=== PATIENT | male | born 1940 | race Caucasian/White ===

== ENCOUNTER 2017-06-10 08:44 | Observation (INO) | payer OTHER ==
--- NOTE | 2017-06-10 09:04 | CPEKG ---
Heart Rate: 91 RR Interval: 659 P-R Interval: 193 QRSD Interval: 94 QT Interval: 336 QTC Interval: 414 P [place]: 62 QRS [place]: 82 EKG Severity - ABNORMAL ECG - EKG Impression: SINUS RHYTHM EKG Impression: VENTRICULAR BIGEMINY EKG Impression: BORDERLINE RIGHT AXIS DEVIATION EKG Impression: ABNRM R PROG, CONSIDER ASMI OR LEAD PLACEMENT EKG Impression: SHORT QT INTERVAL Electronically Signed By: Vianca Tovar 10-Jun-2017 15:27:28
--- NOTE | 2017-06-10 09:07 | EDPHY ---
H & P Stated Complaint: L hand was numb when he woke up this morning;no pain HPI/ROS: CHIEF COMPLAINT: Left hand paresthesias and weakness HISTORY OF PRESENT ILLNESS: The patient is an anticoagulated (plavix) 77 y/o male complaining of left hand numbness and weakness onset this morning. He had significant difficulty and clumsiness tying his shoes due to symptoms. As he was tying his shoes around 07:30, he noticed his heart LINQ monitor come on, which is unusual. His encouraged him to call his linking machine operator due to this and they referred him to the ED. His hand weakness is improving. He did not notice any other weakness or paresthesias and was able to walk normally. Denies acute neck pain, chest pain, headache, recent illness, dyspnea. He also notes temporary vision changes like a "bright light or oil on my glasses" in both eyes yesterday morning that last about 10 minutes. He has noticed some waning strength over the last 6 months. REVIEW OF SYSTEMS: A ten point review of systems was performed and is negative with the exception of the items mentioned in the HPI. Past medical history: Chronic neck and lower back pain, COPD and sleep apnea- O2 in PM, abdominal aneurysm, hypertension, chronic renal insufficiency with baseline creatinine in mid 2's, BPH, CAD, dyslipidemia, hearing loss - hearing aids. Past surgical history: Cardiac stents, AAA repair, appendectomy, tonsillectomy, pilonidal cyst, LINQ monitor Family history: Noncontributory Social history: Exercises daily. Former smoker. 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 Orthopedic Assistant: Dr. Chandler Ward. PCP: Dr. Mcghee. Fish Grader: Dr. Syde. Prior medical records reviewed including admission 03/19/16 for syncope and cardiology procedure note 06/06/16. General Appearance: Alert. Vital signs reviewed. Blood pressure 188/60 Eyes: Pupils equal and round, no conjunctival injection, no discharge. Anicteric. ENT, Mouth: Mucous membranes are moist, no oropharyngeal erythema or edema. Neck: No lymphadenopathy, supple. Respiratory: Distant breath sounds with scattered expiratory wheezes Cardiovascular: Bigeminy; no murmur, rub, or gallop. Distant heart sounds. Gastrointestinal: Abdomen is soft and nontender, no masses or organomegaly, bowel sounds normal. Skin: Warm and dry, no rashes on exposed skin, normal color. Back: Nontender to palpation over the thoracolumbar spine. No CVAT. Extremities: No lower extremity edema, no calf tenderness or swelling. Neurological: Alert and oriented. Moving all four extremities easily and equally. Decreased hearing to finger rub bilaterally, but worse on right. Cranial nerves II through XII are examined and are otherwise intact (visual acuity not tested) . Strength is 5 over 5 bilaterally with testing of all major motor groups. Sensation is intact to light touch over all 4 extremities. Deep tendon reflexes are 2+ in the biceps and knees bilaterally. Mild dysmetria on left during jxbz-vy-najv. Xztvbj-aw-kljy shows mild past pointing with the right, but better on second try. Accurate vodoki-yk-niex on the left. Psychiatric: Normal affect. - Personal History Current Tetanus Diphtheria and Acellular Pertussis (TDAP): Yes - Medical/Surgical History Hx Asthma: No Hx Chronic Respiratory Disease: No Hx Diabetes: No Hx Cardiac Disease: Yes Hx Renal Disease: Yes Hx Cirrhosis: No Hx Alcoholism: No Hx HIV/AIDS: No Hx Splenectomy or Spleen Trauma: No Other PMH: CARDIAC STENTS/HTN BPH/KIDNEY PROBLEMS. aaa, asthma, copd, ddd, zeb, cri - Social History Smoking Status: Former smoker Constitutional: Initial Vital Signs Temperature (C) 36.6 C 06/10/17 08:45 Heart Rate 41 L 06/10/17 08:45 Respiratory Rate 16 06/10/17 08:45 Blood Pressure 188/60 H 06/10/17 08:45 O2 Sat (%) 98 06/10/17 08:45 O2 Delivery Mode Room Air Allergies/Adverse Reactions: hydromorphone HCl [From Dilaudid] Allergy (Intermediate, Verified 06/10/17 08:46 ) MENTAL CHANGES opioid agonists Allergy (Uncoded 06/06/16 11:44) Home Medications: Medication Instructions Recorded Allopurinol [Allopurinol 100 MG 100 mg PO BID 03/19/16 (*)] Clopidogrel Bisulfate [Clopidogrel] 75 mg PO DAILY 03/19/16 Omeprazole [Prilosec 20 mg] 20 mg PO DAILY 03/19/16 Pravastatin Sodium [Pravachol] 80 mg PO DAILY@18 03/19/16 Tamsulosin HCl [Flomax 0.4 MG (*)] 0.4 mg PO HS 03/19/16 Ascorbic Acid [Vitamin C 500 mg 1,000 mg PO DAILY@1900 06/10/17 (*)] Cholecalciferol Vit D3 [Vitamin D3 1,000 units PO TUFR@1900 06/10/17 (*)] Herbals/Supplements -Info Only 1 ea PO DAILY 06/10/17 Multivitamins [Multivitamin (*)] 1 each PO DAILY 06/10/17 Shipman-3 Fatty Acids [Fish Oil 1000 1,000 mg PO BID 06/10/17 mg (*)] Tears/Dextran 70/Hypromellose 1 drop EACHEYE Q2 PRN 06/10/17 [Natural Balance Tears (*)] Triamcinolone 0.025% 1 tran TP DAILY PRN 06/10/17 [Triamcinolone 0.025% Ointment (*)] Ubidecarenone [Co Q-10] 300 mg PO DAILY 06/10/17 Aspirin [Aspirin 325 mg (*)] 325 mg PO DAILY #30 tab 06/11/17 amLODIPine BESYLATE [Norvasc 2.5 2.5 mg PO DAILY #30 tab 06/11/17 mg (*)] Medical Decision Making - Diagnostics Imaging: Discussed imaging studies w/ transportation dispatcher Radiologist, I viewed and interpreted images myself ED Course/Re-evaluation: This is an anticoagulated 77 y/o male who presents with at least 4 hours of left hand paresthesias and weakness. It appears that he woke with this symptoms , making the timing of the onset unknown. He is taking Plavix. These symptoms are slowly improving. On exam, he has some mild neurologic abnormalities. He has decreased hearing to finger rub bilaterally and worse on right, mild dysmetria on left during xqgw-tt-cike, and his ahjfme-bk-aicy shows mild past pointing with the right, but better on second try and normal on the left which is the hand that was symptomatic. He does not have sensory deficits on exam. No extinction. NIHSS 0. His symptoms are most concerning for stroke. He would not qualify for tPA as the onset of symptoms is unknown, symptoms are rapidly improving, and his stroke score is 0. Plan for IV, labs, EKG, and head CT. The 12 lead EKG was interpreted by myself. Sinus with bigeminy. Similar to prior EKGs. See hard copy and/or "tracemaster" electronic copy for interpretation. Head CT shows lacunar infarct in right caudate that is new since 2016, but not acute. Extensive carotid arthrosclerosis. Reassessed patient and discussed findings. Recommended admission for TIA/stroke, which he reluctantly agrees to. 1024: Consulted with Dr. Cisneros, cardiology. He will consult during admission as needed. Reassessed patient and discussed results and recommendation for admission for TIA/stroke work up including brain MRI, CTA of the head and neck,, and echocardiogram. He is unsure if he would like to be admitted and wants to call his first. 1114: Reassessed patient and again discussed my recommendation for admission. He is still reluctant. His hand symptoms have resolved. He also reports his vision changes recurred about 15 minutes ago and are still present. He describes it as bright light in both eyes that feels "like I put oil in there and I'm looking through a prism." It is the same in each eye. He denies blurriness or vision cuts and is able to read normally. No headache. On reexamination SAIDA, EOMI, visual mobley full to bedside confrontational testing. 1119: Vision change resolved instantly. After lengthy discussion, the patient has agreed to admission. 1130: Consulted with Dr. Nieves, neurology. He will follow patient's admission and does recommend CTA head and neck during admission. 1134: Spoke with hospitalist service. Dr. Sheridan accepts admission. Patient currently asymptomatic--denying any hand or visual symptoms. He is noted to be hypertensive in the emergency department. He has a history of hypertension and states that he is compliant with his medications. He has a loop recorder in place and tells me that the information on it should have been sent to his cardiology office. In discussion with the office I learned that this information is not sent directly to them. They will need to access the information on his recorder to determine whether not he had a cardiac arrhythmia with subsequent embolic event. It is concerning that he had these symptoms in the face of anticoagulation. Differential Diagnosis: I considered a differential diagnosis that includes but is not limited to CVA, TIA, malignancy or intracranial mass, seizure, complication of headache, cervical radiculopathy, carpal tunnel syndrome, trauma to the left hand or arm. - Data Points Laboratory Results: Laboratory Results 06/10/17 09:04 06/10/17 09:04 Medications Given: Discontinued Medications Allopurinol (Allopurinol) 100 mg PO BID EUSEBIO Stop: 12/08/17 08:59 Last Admin: 06/11/17 09:03 Dose: 100 mg Amlodipine Besylate (Norvasc) 2.5 mg PO DAILY EUSEBIO Stop: 12/08/17 08:59 Last Admin: 06/11/17 09:13 Dose: 2.5 mg Clopidogrel Bisulfate (Plavix) 75 mg PO DAILY EUSEBIO Stop: 12/08/17 08:59 Last Admin: 06/11/17 09:03 Dose: 75 mg Ethyl Alcohol (Vodka) 50 ml PO DAILY AT 6PM EUSEBIO Stop: 12/07/17 17:59 Last Admin: 06/10/17 18:59 Dose: 50 ml Miscellaneous Medication (Ubidecarenone [Co Q-10]) 0 mg PO DAILY EUSEBIO Stop: 12/08/17 08:59 Last Admin: 06/11/17 09:11 Dose: Not Given Multivitamins (Tab-A-Je) 1 each PO DAILY EUSEBIO Stop: 12/08/17 08:59 Last Admin: 06/11/17 09:03 Dose: 1 each Xtdyi-0-Illj Ethyl Esters (Fish Oil) 1,000 mg PO BID EUSEBIO Stop: 12/07/17 20:59 Last Admin: 06/11/17 09:02 Dose: 1,000 mg Pantoprazole Sodium (Protonix) 40 mg PO DAILY EUSEBIO Stop: 12/08/17 08:59 Last Admin: 06/11/17 09:03 Dose: 40 mg Pneumococcal 13-Valent Conj Vacc (Prevnar 13 Syringe) 0.5 ml IM .ONCE ONE Stop: 06/11/17 12:52 Last Admin: 06/11/17 13:12 Dose: 0.5 ml Pravastatin Sodium (Pravachol) 80 mg PO DAILY@18 EUSEBIO Stop: 12/07/17 17:59 Last Admin: 06/10/17 18:58 Dose: 80 mg Tamsulosin HCl (Flomax) 0.4 mg PO HS EUSEBIO Stop: 12/07/17 20:59 Last Admin: 06/10/17 21:34 Dose: 0.4 mg Departure - Departure Disposition: [facility] Acute Clinical Impression: Left hand weakness, Left hand paresthesia TIA (transient ischemic attack) Qualifiers: Transient cerebral ischemia type: other Qualified Code(s): G45.8 - Other transient cerebral ischemic attacks and related syndromes Condition: Fair Report Scribed for: Vianca Tovar Report Scribed by: Sussy Perez Date of Report: 06/10/17 Time of Report: 09:43 Physician Review and Approval Statement: 06/10/17 09:07 Portions of this note were transcribed by the medical office scheduler. I, Dr. Vianca Tovar, personally performed the history, physical exam, and medical decision- making; and confirmed the accuracy of the information in the transcribed note.
[2017-06-10 09:42] LABS: % IMMATURE GRANULYOCYTES 0.6 % (0.0-1.1); ABSOLUTE IMMATURE GRANULOCYTES 0.04 10^3/uL (0.00-0.10); ADD DIFF? NO; ADD MORPH? NO; ADD SCAN? NO; ATYPICAL LYMPHOCYTE FLAG 0 (0-99); FRAGMENT RBC FLAG 0 (0-99); HEMATOCRIT 36.4 % (40.0-51.0); HEMOGLOBIN 12.6 g/dL (13.7-17.5); LEFT SHIFT FLG 0 (0-99); LIPEMIA HEMOLYSIS FLAG 90 (0-99); MEAN CELL HEMOGLOBIN 35.9 pg (27.9-34.1); MEAN CELL HEMOGLOBIN CONCENTR. 34.6 g/dL (32.4-36.7); MEAN CELL VOLUME 103.7 fL (81.5-99.8); MEAN PLATELET VOLUME 9.7 fL (8.7-11.7); PLATELET CLUMPS FLAG 40 (0-99); PLATELET COUNT 161 10^3/uL (150-400); RED BLOOD CELL COUNT 3.51 10^6/uL (4.40-6.38)
[2017-06-10 09:47] LABS: ANION GAP 11 mEq/L (8-16); CALCIUM 10.7 mg/dL (8.5-10.4); CARBON DIOXIDE 27 mEq/l (22-31); CHLORIDE 105 mEq/L (97-110); CREATININE 2.1 mg/dL (0.7-1.3); GLOMERULAR FILTRATION RATE 31; GLUCOSE 114 mg/dL (70-100); POTASSIUM 4.9 mEq/L (3.5-5.2); SODIUM 143 mEq/L (134-144)
[2017-06-10 09:51] LABS: INR 0.95 (0.83-1.16); PROTIME(PATIENT) 12.6 SEC (12.0-15.0)
[2017-06-10 09:52] LABS: APTT 25.8 SEC (23.0-38.0)
[2017-06-10 09:59] LABS: TROPONIN I 0.031 ng/mL (0.000-0.034)
[2017-06-10] MEDS ORDERED: ONDANSETRON DISINTEGRATING 4 MG TAB PO PRN (12:05)
[2017-06-10] MEDS ORDERED: ACETAMINOPHEN 325 MG TAB PO PRN (12:05)
[2017-06-10] MEDS ORDERED: ONDANSETRON 4 MG/2 ML VIAL IVP PRN (12:05)
[2017-06-10] MEDS ORDERED: TRIAMCINOLONE 0.025% 15 GM OINTTUBE TP PRN (12:57)
[2017-06-10] MEDS ORDERED: TEARS/DEXTRAN 70/HYPROMELLOSE 15 ML OPHT.BTL EACHEYE PRN (12:57)
--- NOTE | 2017-06-10 14:20 | GHP ---
[f rep st] HISTORY AND PHYSICAL DATE OF ADMISSION: 06/10/2017 CHIEF COMPLAINT: Left hand numbness. HISTORY OF PRESENT ILLNESS: A 77-year-old male, history of CAD with LAD stent in 2004, COPD, hypertension, presenting with left hand numbness. He was in his normal state of health yesterday. He complained of left hand numbness and weakness this morning, about 5 a.m. He said it was difficult, and his hands were clumsy, tying his shoes. At 7:30 a.m., he noticed his heart monitor come on, which is unusual as it only comes on at night. He did not have any slurred speech. Denies chest pain or shortness of breath. Yesterday, he noticed vision changes, like he was looking through oil; like looking through something thick, lasting about 10-15 minutes. REVIEW OF SYSTEMS: I completed a 10-point review of systems, negative except as noted in HPI. PAST MEDICAL HISTORY: 1. Chronic neck and back pain. 2. COPD, sleep apnea. On nocturnal oxygen. 3. History of abdominal aneurysm. 4. Hypertension. 5. Chronic kidney disease. Baseline creatinine is 2. 6. Benign prostatic hypertrophy. 7. Coronary artery disease. 8. Dyslipidemia. 9. Hearing loss. PAST SURGICAL HISTORY: AAA repair, appendectomy, tonsillectomy, pilonidal cyst , LINQ monitor. FAMILY HISTORY: Noncontributory. SOCIAL HISTORY: Lives with his in [place], been 37 years. Drinks 4 vodkas a night. No tobacco or illicits. ALLERGIES: 1. Hydromorphone. 2. Opioid agonists. HOME MEDICATIONS: Vitamin D 3000, herbal supplement, fish oil 1000 mg, vitamin C, CoQ10, multivitamins, Natural Tears, triamcinolone cream, allopurinol 100 mg b.i.d., omeprazole 20 mg daily, Plavix 75 mg daily, Flomax 0.5 mg q.h.s., pravastatin 80 mg daily, aspirin 81 mg Saturday, Saturday, and Saturday. PHYSICAL EXAMINATION: VITAL SIGNS: Temperature 36.6. Blood pressure 174 to 189 over 80s to 90s. Heart rate 40 to 76. Respirations 16, 95% on room air. GENERAL: Well-appearing male, walking around in his room. HEENT: PERRLA. EOMI. Oropharynx clear. CV: Bradycardic, but regular. No murmurs, gallops, rubs. LUNGS: Clear to auscultation bilaterally. ABDOMEN: Soft, nontender, nondistended. Positive bowel sounds. : No Hannah. No suprapubic tenderness. MUSCULOSKELETAL: 5/5 upper/lower extremity strength. NEURO: 2 through 12 intact. Difficulty standing, with negative pronators. Normal sensation to touch. PSYCH: Alert and oriented x3. LABORATORY DATA: WBC is 6, hemoglobin 12, hematocrit 36, platelets 161. Coags within normal. Sodium 141, potassium 4.9, chloride 105, carbon dioxide 27, BUN 14, creatinine 2.1, glucose 114, calcium 10.7, phosphorus is 2.8. Troponin 0.031. Head CT: Mild atrophy. Old lacunar infarct to the right caudate head and caudate body, new since 2016. No acute hemorrhage, hydrocephalus, or mass effect. Extensive cerebral vascular atherosclerosis. EKG is personally reviewed by me: Roderick, which is seen on prior. ASSESSMENT AND PLAN: 1. Transient ischemic attack: Concerning symptoms. Unclear onset. Patient is not a tissue plasminogen activator candidate. Currently, the symptoms are resolved. Will monitor on telemetry overnight with physical therapy, occupational therapy, and speech evaluation. He does have a LINQ recorder and, per my review of outpatient notes, episodes atrial fibrillations, but actually sinus rhythm with premature ventricular contractions. He has evidence of atherosclerosis on prior carotid ultrasound in February 2016. CT head showed infarct of the caudate head and body, new since 2015, but nothing acute. Neurology will consult. Patient is currently on Plavix and takes aspirin 81 mg Saturday, Saturday, Saturday. Would consider taking daily, given acute symptoms. Check a lipid panel. Allow permissive hypertension for the first 24 hours. Check MRA head/neck (with CKD) and MRI brain, echo 2. Accelerated hypertension: He states his blood pressure is usually 140s. Will monitor closely here. 3. Hyperlipidemia: Statin. 4. Chronic obstructive pulmonary disease: On oxygen at night. No evidence of exacerbation. 5. Coronary artery disease: Continue statin and aspirin. 6. Alcohol dependence, drinking 4-5 drinks a day: He is followed by Dr. Mcghee , who has actually referred him to [facility]. The patient was counseled on his alcohol cessation. 7. Chronic kidney disease: Creatinine is 2.1, which is baseline. He is followed by Dr. Sharp. 8. Benign prostatic hypertrophy: Flomax. 9. Gastroesophageal reflux disease: Proton pump inhibitor. 10. Deep vein thrombosis prophylaxis: Sequential compression devices. 11. Diet: Cardiac. DISPOSITION: Patient warrants observation and admission, given acute symptoms concerning for TIA, requiring telemetry monitoring. Neurology consult. /[id number]/MODL MTDD
--- NOTE | 2017-06-10 15:24 | CPEKG ---
Heart Rate: 65 RR Interval: 923 P-R Interval: 201 QRSD Interval: 92 QT Interval: 420 QTC Interval: 437 P [place]: 0 QRS [place]: 65 T Wave [place]: 62 EKG Severity - ABNORMAL ECG - EKG Impression: SINUS RHYTHM EKG Impression: MULTIPLE VENTRICULAR PREMATURE COMPLEXES Electronically Signed By: Ulises Diaz 10-Jun-2017 22:07:19
--- NOTE | 2017-06-10 16:21 | ECHO ---
[email or web address] [address] [address] Main: [phone] Fax: Transthoracic Echocardiogram Name: NANNETTE MARINO MR#: [id number] Study Date: 06/10/2017 Study Time: 01:49 PM Date of : 1940 Age: 77 year(s) Height: 172.7 cm (68 in.) Weight: 81.19 kg (179 lb.) BSA: 1.95 m2 Gender: Male Examination: Echo with Agitated Saline Indication: concern for TIA; bubble Image Quality: Adequate Contrast: I.V. dose of agitated saline Requested by: Emily Sheridan BP: 174 mmHg/60 mmHg Heart Rate: Rhythm: Bigeminy Indication: concern for TIA; bubble Procedure Staff Division Chair: Marlena Monsivais Reading Physician: French Rawls Requesting Provider: Conclusions: Normal global systolic LV function. EF is 56 %. No regional wall motion abnormality. The left atrium is mildly dilated. An agitated saline study was performed and was negative for intracardiac shunting. Trivial tricuspid valve regurgitation. Normal size aortic root measuring 3.0 cm. Compared to echo of 02/2016, today's echo is unchanged. Measurements: Chambers Valvular Assessment AV/MV Valvular Assessment TV/PV Normal Normal Normal Name Value Range Name Value Range Name Value Range Ao Cynthia (MM): 3.0 cm (2.2 cm-3.7 AV Vmax: 1.94 m/s (1 m/s-1.7 PV Vmax: 0.81 m/s (0.6 m/s-0.9 cm) m/s) m/s) IVSd (2D): 1.1 cm (0.6 cm-1.1 AV maxP mmHg ( - ) PV PGmax: 3 mmHg ( - ) cm) LVOT Vmax: 1.17 m/s (0.7 m/s-1.1 LVDd (2D): 5.0 cm (4.2 cm-5.9 m/s) cm) LATOSHA (Vmax): 2.1 cm2 ( - ) LVDs (2D): 3.6 cm (2.1 cm-4 MV E Vmax: 0.92 m/s ( - ) cm) MV A Vmax: 1.26 m/s ( - ) LVPWd (2D): 1.0 cm (0.6 cm-1 MV E/A: 0.73 ( - ) cm) LVOTd 2.1 cm 2.1 cm mm LVEF (BP): 56 % (>=55 %) RVDd(2D): 3.1 cm (1.9 cm-3.8 cmmm) Continued Measurements: Chambers Valvular Assessment AV/MV Valvular Assessment TV/PV Patient: NANNETTE MARINO Study Date: 06/10/2017 Page 1 of 2 01:49 PM Name Value Name Value Name Value LADs Lon.5 cm MV DecTime: 229 m/s CVP (est.): 5 mmHg LA Area: 23.7 cm2 MV E/E' Septal: 15.50 LA Volume: 70 ml MV E/E' Lateral: 8.20 LA Volume Index: 35.9 ml/m2 RA Area: 21.0 cm2 Additional Vessels Name Value Ao Ascendin.8 cm Findings: Left Ventricle: Normal size left ventricle. Mild to moderate LVH. Normal global systolic LV function. EF is 56 %. No regional wall motion abnormality. Unable to assess diastolic dysfunction. Right Ventricle: Normal size right ventricle. Normal RV function. Left Atrium: The left atrium is mildly dilated. An agitated saline study was performed and was negative for intracardiac shunting. Right Atrium: The right atrium is mildly dilated. Mitral Valve: The mitral valve is normal in appearance. Trivial mitral valve regurgitation. Aortic Valve: The aortic valve is tri-leaflet. Aortic sclerosis is present. There is no aortic valve regurgitation. No aortic valve stenosis is present. Tricuspid Valve: The tricuspid valve appears normal. Trivial tricuspid valve regurgitation. Pulmonary artery pressure is not obtained due to inadequate TR jet. Pulmonic Valve: The pulmonic valve is normal in appearance and function. There is no pulmonic regurgitation seen. Aorta: Normal size aortic root measuring 3.0 cm. Normal size ascending aorta measuring 2.8 cm. Pericardium: No pericardial effusion. (No Signature Object) Patient: NANNETTE MARINO Study Date: 06/10/2017 Page 2 of 2 01:49 PM [id number]
[2017-06-10] MEDS ORDERED: PRAVASTATIN SODIUM 40 MG TAB PO SCH (18:00)
[2017-06-10] MEDS ORDERED: NON-FORMULARY NEW DRUG (Pravastatin Sodium [Pravachol] 80 MG) PO SCH (18:00)
[2017-06-10] MEDS ORDERED: VODKA 50 ML BOTTLE PO SCH (18:00)
[2017-06-10] MEDS ORDERED: TAMSULOSIN HCL 0.4 MG CAP PO SCH (21:00)
[2017-06-10] MEDS: OMEGA-3 FATTY ACIDS 1,000 MG CAP PO SCH (21:34)
[2017-06-11 05:44] LABS: ANION GAP 10 mEq/L (8-16); CALCIUM 9.7 mg/dL (8.5-10.4); CARBON DIOXIDE 25 mEq/l (22-31); CHLORIDE 104 mEq/L (97-110); CHOLESTEROL 128 mg/dL (140-220); CHOLESTEROL/HDL RATIO 1.68 RATIO (1.00-4.97); GLOMERULAR FILTRATION RATE 33; GLUCOSE 95 mg/dL (70-100); HIGH DENSITY LIPOPROTEIN 76 mg/dL (40-65); LDL/HDL RATIO 0.49 RATIO (1.00-3.64); LOW DENSITY LIPOPROTEIN 37 mg/dL (80-100); NON-HIGH DENSITY LIPOPROTEIN 52 mg/dL (90-129); POTASSIUM 4.2 mEq/L (3.5-5.2); SODIUM 139 mEq/L (134-144); TRIGLYCERIDE 77 mg/dL (40-150); VERY LOW DENSITY LIPOPROTEINS 15 mg/dL (8-25)
[2017-06-11] MEDS ORDERED: MULTIVITAMINS 1 EACH TAB PO SCH (09:00)
[2017-06-11] MEDS ORDERED: ALLOPURINOL 100 MG TAB PO SCH (09:00)
[2017-06-11] MEDS ORDERED: CLOPIDOGREL BISULFATE 75 MG TAB PO SCH (09:00)
[2017-06-11] MEDS ORDERED: NON-FORMULARY NEW DRUG (Omeprazole [Prilosec 20 Mg] 20 MG) PO SCH (09:00)
[2017-06-11] MEDS ORDERED: UBIDECARENONE 300 MG PO SCH ×2 (09:00)
[2017-06-11] MEDS ORDERED: Herbals/Supplements -Info Only PO SCH (09:00)
[2017-06-11] MEDS ORDERED: PANTOPRAZOLE SODIUM 40 MG TAB PO SCH (09:00)
[2017-06-11] MEDS: OMEGA-3 FATTY ACIDS 1,000 MG CAP PO SCH (09:02)
--- NOTE | 2017-06-11 10:49 | NEUROPROG ---
Assessment: HOSPITAL NEUROLOGY CONSULT REQUESTING: Emily Sheridan MD REASON: stroke HPI: 77 year old right-handed man with a history of HTN, HLD, CAD, implanted loop recorder, alcohol abuse, SHARDA presented to our facility yesterday as a stroke alert. He notes waking around 0500 feeling his right hand was numb and clumsy. He noted difficulty with tasks such as trying to tie a shoelace. He phoned his gunstock spray unit adjuster who directed him to the ED. He presented at 0845. Symptoms had improved at that time, so no acute stroke intervention was deemed necessary. He had also noted a brief episode of binocular visual blurring in the whole visual mobley, like "someone put oil in my eyes." This visual disturbance only lasted 15 mins. He denies any speech/language change, gait trouble, leg symptoms, dizziness/vestibular symptoms, hearing changes. No CP, palpitations, SOB. He denies prior history of stroke/TIA. Today, he feels completely back to baseline. ROS: As per the HPI, otherwise a complete 12 point ROS was performed and is negative ALLERGIES AND MEDS: As recorded in the EMR - reviewed and reconciled PFSH: As per the intake H&P by Dr. Sheridan from yesterday EXAM: VS reviewed in EMR GEN: WDWN laying in NAD HEENT: NCAT, sclera anicteric, conjunctiva not injected, MMM, oropharynx clear, no scalp tenderness NECK: supple, nontender, no meningismus CV: RRR s1 s2 wo m/r/c/g. Carotid pulses 2+ wo bruit NEURO: NIHSS 0 MS: awake, alert, oriented to all spheres. Speech nondysarthric. No language disturbance. Follows commands. Attends to both sides. Recent/remote memory grossly intact. Mood euthymic. Good fund of knowledge. CN: pupils 4mm round and reactive. Fundi with sharp discs. VFF. Primary gaze centered. Full ocular motility. Facial sensation preserved. Face symmetric. Hearing grossly intact to finger rub. Palatoglossal movements intact. Shoulder shrug and head turn strong. MOTOR: normal bulk/tone. No adventitial movements. Full power throughout. SENSORY: intact to all modalities throughout. No extinction. COORD: no ataxia FN/HS. Santi preserved. REFLEX: plantars down. No clonus. Absent ankle jerks, other DTRS 2/4. GAIT: deferred to PT safety eval DATA REVIEW: Labs reviewed in EMR LDL 37 A1c pending TTE - mild LA dilation, no mass/shunt, preserved EF PERSONALLY INTERPRETED RESULTS AND DATA: MRI brain wo - a few punctate areas of acute infarction in the left precentral gyrus/motor strip. Chronic microvascular ischemic changes in the subcortical white matter. MRA head/neck - patent intracranial/extracranial vessels IMPRESSION AND RECOMMENDATIONS: // ACUTE ISCHEMIC STROKE Patient with cortically based acute ischemic stroke with rapidly resolving neurologic deficits. Carotid and intracranial circulation patent and no PFO on TTE. Given the cortical nature, this leaves a very likely mechanism of cardioembolism. He already has an implanted loop recorder. This will need to be interrogated. - consider empiric anticoagulation given stroke mechanism - cont ASA daily for now, but increase to 325mg daily - cont statin for goal LDL < 70 - goal normotension - goal A1c < 6.5 - alcohol cessation strongly encouraged - cont current SHARDA treatment - stroke education - PT/OT/INTERIOR SYSTEMS CARPENTER consults - followup with cardiology for loop recorder interrogation, further evaluation of likely afib with new embolic stroke - followup neurology 6-8 weeks - followup PCP within 1-2 weeks - will sign off. Recall PRN Objective: Vital Signs Temp Pulse Resp BP Pulse Ox 36.8 C 69 18 121/74 H 96 06/11/17 07:50 06/11/17 07:50 06/11/17 07:50 06/11/17 09:13 06/11/17 07:50 Laboratory Results 06/11/17 04:55 06/10/17 06/11/17 06/12/17 05:59 05:59 05:59 Intake Total 1040 Balance 1040 PT 12.6 SEC (12.0-15.0) 06/10/17 09:04 INR 0.95 (0.83-1.16) 06/10/17 09:04 Allergies/Adverse Reactions: hydromorphone HCl [From Dilaudid] Allergy (Intermediate, Verified 06/10/17 08:46 ) MENTAL CHANGES opioid agonists Allergy (Uncoded 06/06/16 11:44)
[2017-06-11 11:43] VITALS: O2SAT 95
--- NOTE | 2017-06-11 12:34 | HOSPPROG ---
Hospitalist Progress Note Assessment/Plan: #Acute ischemic stroke: no residual deficits -cleared by PT/OT/GRANTS DIRECTOR -LDL at goal <70 -still bit hypertensive. Add Norvasc -needs to FU with Cardiology. I spoke with Vicky with Cardiology who reviewed records and no a fib events. -ASA 325, Plavix. #Etoh dependence: counseled on cessation #CKD: Cr stable. #HTN: add Norvasc #DC today. See DC summary for full plan Subjective: no numbness or tingling Objective: Vital Signs Temp Pulse Resp BP Pulse Ox 36.9 C 69 20 146/90 H 95 06/11/17 11:43 06/11/17 11:43 06/11/17 11:43 06/11/17 11:43 06/11/17 11:43 Laboratory Results 06/11/17 04:55 06/10/17 06/11/17 06/12/17 05:59 05:59 05:59 Intake Total 1040 Balance 1040 PT 12.6 SEC (12.0-15.0) 06/10/17 09:04 INR 0.95 (0.83-1.16) 06/10/17 09:04 - Physical Exam Constitutional: no apparent distress Eyes: PERRL Ears, Nose, Mouth, Throat: moist mucous membranes Cardiovascular: regular rate and rhythym, no murmur, rub, or gallop Respiratory: no respiratory distress Gastrointestinal: normoactive bowel sounds, soft, non-tender abdomen Genitourinary: no bladder fullness Skin: warm Musculoskeletal: full muscle strength Neurologic: AAOx3, CN II-XII Intact, No facial droop Psychiatric: interacting appropriately ICD10 Worksheet Patient Problems: Problems Problem Status Onset Left hand paresthesia Acute Left hand weakness Acute TIA (transient ischemic attack) Acute Abnormal EKG Acute Syncope Acute
[2017-06-11] MEDS ORDERED: PNEUMOC 13-VAL CONJ-DIP CRM/PF 0.5 ML SYR IM ONE (12:51)
--- NOTE | 2017-06-11 15:12 | GDS ---
[f rep st] DISCHARGE SUMMARY DISCHARGE DIAGNOSIS: 1. Acute ischemic stroke. 2. Alcohol dependence. 3. Chronic kidney disease. 4. Hypertension. 5. Chronic neck and back pain. 6. Chronic obstructive pulmonary disease. 7. Sleep apnea. On nocturnal oxygen. 8. History of abdominal aneurysm. 9. BPH. 10. Coronary artery disease. 11. Dyslipidemia. HISTORY OF PRESENT ILLNESS: A 77-year-old male with history of CAD with LAD stent in 2004, COPD, and hypertension. Presenting with left hand numbness. He was in his normal state of health the day prior to admission. The morning of admission, he noticed left hand numbness and weakness. He had difficulty tying his shoe. At 7:30 a.m., he noticed his heart monitor come on, which is unusual. He denies any chest pain, palpitations, shortness of breath. No nausea, vomiting, or diarrhea. He also noticed vision changes like he was looking through oil, lasting 10-15 minutes. HOSPITAL COURSE BY PROBLEM: 1. Acute ischemic stroke. Brain MRI showed hyperintensity in the region of the right motor strip. The patient does not have any residual deficits. He was cleared by Physical Therapy, Occupational Therapy, and Speech Evaluation. Concern for possible cardioembolic etiology. He does have a loop recorder in place. I did review this with Vicky with [facility] stating that there has been no episodes of atrial fibrillation up to date. We will continue Plavix and increase aspirin to 325 daily, as the patient was only taking 81 mg Saturday, Saturday, Saturday. LDL is at goal. Blood pressure remains slightly elevated. Will start Norvasc. This will likely need up-titration as an outpatient. 2. Follow up with Neurology in 6 weeks. Echo was negative for PFO. 3. Alcohol dependence: He has seen Behavioral Health per through his primary care physician. I counseled him on cessation. 4. Hypertension. Again, started low-dose Norvasc. 5. Hyperlipidemia. Statin. 6. Coronary artery disease. Continue Plavix, aspirin. 7. Chronic obstructive pulmonary disease. No evidence of exacerbation. 8. All other chronic medical issues: Stable. DISPOSITION: Patient is stable for home discharge. MEDICATIONS: New medications: Aspirin 325 mg daily. FOLLOWUP: 1. Follow up PCP in 1-2 weeks, may need uptitration Norvasc 2. Follow up with Cardiology to continue monitoring on telemetry. 3. /[id number]/MODL MTDD
[2017-06-11 15:31] VITALS: BP 166/73; PULSE 60; RESP 14; TEMP 98
--- NOTE | 2017-06-11 15:38 | ASMTCMCOM ---
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 Pt medically stable for d/c, no CM d/c needs identified. Date Signed: 06/11/2017 03:37 PM Electronically Signed By:STACEY Valadez
--- NOTE | 2017-06-11 15:59 | ASDISCHSUM ---
Discharge Information Plan Status:Home with No Needs Medically Cleared to Leave: Discharge Date:06/11/2017 03:49 PM CM D/C Disposition:Home, Routine, Self-Care ADT D/C Disposition:Home, Routine, Self-Care Projected Discharge Date:06/11/2017 03:49 PM Transportation at D/C: Discharge Delay Reason: Follow-Up Date:06/11/2017 03:49 PM Discharge Slot: Final Diagnosis: Placement Information Patient Contact Information Contact Name:SCALES (MOLLY) Relationship: Address:[address] Work Phone: City: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 Pt medically stable for d/c, no CM d/c needs identified. Date Signed: 06/11/2017 03:37 PM Electronically Signed By:STACEY Valadez Intervention Information Intervention Type:*LEE-Signed Date of Service:06/11/2017 11:40 AM Patient Type:Observation Staff Member:Lynn Rincon Hours: Discipline: Severity: Comment:
[2017-06-11] MEDS ORDERED: ASCORBIC ACID 500 MG TAB PO SCH (19:00)
[2017-06-11] MEDS ORDERED: CHOLECALCIFEROL VIT D3 1,000 UNITS TAB PO SCH (19:00)
[2017-06-12] MEDS ORDERED: ASPIRIN EC 81 MG TAB PO SCH (09:00)
== END 2017-06-11 15:49 | disposition home or self-care (01) ==
LOC: F3N 12:31
PROVIDERS: ADMIT Internal Medicine; ATTEND Internal Medicine
DX: I63.9 Cerebral infarction, unspecified (principal); F10.20 Alcohol dependence, uncomplicated; N18.9 Chronic kidney disease, unspecified; I12.9 Hypertensive chronic kidney disease with stage 1 through stage 4 chronic kidney disease, or unspecified chronic kidney disease; M54.2 Cervicalgia; J44.9 Chronic obstructive pulmonary disease, unspecified; G47.33 Obstructive sleep apnea (adult) (pediatric); N40.1 Benign prostatic hyperplasia with lower urinary tract symptoms; I25.10 Atherosclerotic heart disease of native coronary artery without angina pectoris; E78.5 Hyperlipidemia, unspecified; Z86.79 Personal history of other diseases of the circulatory system
CPT/HCPCS: 70450; 70544; 70547; 70551; 90670; 92523; 93005; 93306; 97161; 97165; G0009; G0378; G8978; G8979; G8980; G8987; G8988; G8989; G9168; G9169; G9170

== ENCOUNTER 2018-01-05 13:02 | Emergency (ER) | payer OTHER ==
[2018-01-05] MEDS ORDERED: IPRATROPIUM/ALBUTEROL 3 ML DEYVIAL IH ONE (14:04)
--- NOTE | 2018-01-05 14:08 | EDPHY ---
HPI/HX/ROS/PE/MDM Narrative: CHIEF COMPLAINT: "I am having difficulty breathing" HPI: The patient is a 77 y/o male with a history of asthma and COPD arriving with his family member complaining of progressive dyspnea for the last 2 days. Symptoms improve with continuous O2 and he reports his SpO2 drops very quickly if he takes it off momentarily. He does not recall prior flares of dyspnea this bad before. He has been using inhalers to manage his respiratory diseases for at least a few months, but with his recent symptoms he had to restart continuous home O2 to manage around the house. He has a "periodic" cough that does not seem worse to him currently. He complains of an associated "low-grade" headache, lack of energy, and feeling like a "space case." He denies chest pain , fever, abdominal pain, vomiting, diarrhea, blood in stool, urinary symptoms, recent illness, or recent trauma. He notes he saw his air quality manager in September because he thought his respiratory symptoms were worsening, but was unhappy having to wait for pulmonary function testing and left the appointment early. He has not seen another provider since then for his symptoms. REVIEW OF SYSTEMS: Aside from elements discussed in the HPI, a comprehensive 10-point review of systems was reviewed and is negative. PMH: Asthma, COPD, CAD with stents, hypertension, BPH, kidney problems, AAA, degenerative disc disease, osteoarthritis SOCIAL HISTORY: Family member at bedside. 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 ENT:Eyes are normal to inspection. ENT inspection normal. Neck: Normal inspection. Full range of motion. Respiratory:No respiratory distress. Bilateral expiratory wheezing on auscultation. Cardiovascular: Regular rate and rhythm. Strong peripheral pulses. Normal cap refill. Abdomen:The abdomen is nontender to palpation. There are no peritoneal signs. Back: Normal to inspection. No tenderness to palpation. Skin: Normal color. No rash. Warm and dry. Extremities: Normal appearance. Full range of motion. Neuro: Oriented x3. Normal motor function. Normal sensory function. ED Course: This is a 77 y/o male with COPD and asthma who presents with a 2-day history of worsening dyspnea and associated fatigue requiring continuous home O2. He has bilateral expiratory wheezes on auscultation and is 96% on 3LPM. He is afebrile. Plan for IV, labs, EKG, chest x-ray, duo neb. The 12 lead EKG was interpreted by myself. Sinus mechanism. See hard copy and/ or "tracemaster" electronic copy for interpretation. Chest x-ray: no infiltrate WBC is elevated at 19.85, but we have not yet determined a cause for this. With respiratory symptoms I remain suspicious for pneumonia despite clear chest film. Creatinine elevated 2.9. Reevaluated patient and discussed work up. I recommended chest CT for further evaluation, which he agrees to. CT shows RLL pneumonia. Reassessed patient and discussed results. Recommended admission, but he declined. He will be discharged home with script for azithromycin, prednisone, albuterol and standard pneumonia care and follow up instructions. He understands he needs to see his PCP within one week for reevaluation. Return precautions discussed. He is comfortable with plan for discharge. MDM: This patient has numerous co-morbidities and is found to have pneumonia. I think he would be safest treated in the hospital and I have recommended this to him, but he declines and would like to be treated as an outpatient. We discussed the fact that his chronic lung disease and co-morbidities place him at increased risk of complication and/or failure to improve. He and his agree to return if any worsening of condition and to follow-up with his PCP as soon as possible. I do not think this is a whitlock decision but I will respect his decision as he appears competent. - Data Points Imaging Results: Imaging Impressions Chest X-Ray 01/05/18 14:04 Impression: 1. Atherosclerotic tortuous aorta. 2. No pneumonia or pulmonary edema. Chest CT 01/05/18 15:21 Impression: 1. Right lower lobe pneumonia. 2. Right upper lobe 17 x 15 mm pulmonary nodule, and left upper lobe 12 mm and 8 mm pulmonary nodules with a differential diagnosis of bronchogenic carcinoma or parenchymal scarring. Recommend follow-up PET scan when the patient's medical condition permits. 3. Atherosclerotic aorta and coronary atherosclerosis without aneurysm. 4. Please see above findings. Findings and recommendations discussed with Emergency Department physician, Gurjit Liang MD at 16:01 hour, 01/05/2018. Final report concurs with initial preliminary interpretation. Imaging: I viewed and interpreted images myself Laboratory Results: Laboratory Results 01/05/18 14:25 01/05/18 14:25 01/05/18 01/05/18 01/05/18 14:25 14:25 14:22 WBC 19.85 10^3/uL H 10^3/uL (3.80-9.50) RBC 3.66 10^6/uL L 10^6/uL (4.40-6.38) Hgb 11.2 g/dL L g/dL (13.7-17.5) Hct 35.5 % L % (40.0-51.0) MCV 97.0 fL fL (81.5-99.8) MCH 30.6 pg pg (27.9-34.1) MCHC 31.5 g/dL L g/dL (32.4-36.7) RDW 14.5 % % (11.5-15.2) Plt Count 203 10^3/uL 10^3/uL (150-400) MPV 10.2 fL fL (8.7-11.7) Neut % (Auto) 87.9 % H % (39.3-74.2) Lymph % (Auto) 3.5 % L % (15.0-45.0) [place] % (Auto) 5.6 % % (4.5-13.0) Eos % (Auto) 1.7 % % (0.6-7.6) Baso % (Auto) 0.2 % L % (0.3-1.7) Nucleat RBC Rel Count 0.0 % % (0.0-0.2) Absolute Neuts (auto) 17.47 10^3/uL H 10^3/uL (1.70-6.50) Absolute Lymphs (auto) 0.69 10^3/uL L 10^3/uL (1.00-3.00) Absolute Monos (auto) 1.12 10^3/uL H 10^3/uL (0.30-0.80) Absolute Eos (auto) 0.33 10^3/uL 10^3/uL (0.03-0.40) Absolute Basos (auto) 0.03 10^3/uL 10^3/uL (0.02-0.10) Absolute Nucleated RBC 0.00 10^3/uL 10^3/uL (0-0.01) Immature Gran % 1.1 % % (0.0-1.1) Immature Gran # 0.21 10^3/uL H 10^3/uL (0.00-0.10) Sodium 143 mEq/L mEq/L (135-145) Potassium 4.6 mEq/L mEq/L (3.3-5.0) Chloride 104 mEq/L mEq/L (97-110) Carbon Dioxide 25 mEq/l mEq/l (22-31) Anion Gap 14 mEq/L mEq/L (8-16) BUN 44 mg/dL H mg/dL (7-23) Creatinine 2.9 mg/dL H mg/dL (0.7-1.3) Estimated GFR 21 Glucose 84 mg/dL mg/dL (70-100) Calcium 10.3 mg/dL mg/dL (8.5-10.4) POC Troponin I 0.02 ng/mL ng/mL (0.00-0.08) NT-Pro-B Natriuret Pep 1590 pg/mL H pg/mL (0-450) Medications Given: Discontinued Medications Albuterol/Ipratropium (Duoneb) 3 ml IH EDNOW ONE Stop: 01/05/18 14:05 Last Admin: 01/05/18 14:21 Dose: 3 ml Point of Care Test Results: Chemistry 01/05/18 14:22 POC Troponin I 0.02 ng/mL ng/mL (0.00-0.08) General Time Seen by Provider: 01/05/18 13:26 Initial Vital Signs: Initial Vital Signs Temperature (C) 36.8 C 01/05/18 13:15 Heart Rate 74 01/05/18 13:15 Respiratory Rate 20 01/05/18 13:15 Blood Pressure 153/68 H 01/05/18 13:15 O2 Sat (%) 94 01/05/18 13:15 O2 Delivery Mode Nasal Cannula O2 (L/minute) 3 Allergies/Adverse Reactions: hydromorphone HCl [From Dilaudid] Allergy (Intermediate, Verified 01/05/18 13:15 ) MENTAL CHANGES opioid agonists Allergy (Uncoded 06/06/16 11:44) Home Medications: Medication Instructions Recorded Allopurinol [Allopurinol 100 MG 100 mg PO BID 03/19/16 (*)] Clopidogrel Bisulfate [Clopidogrel] 75 mg PO DAILY 03/19/16 Omeprazole [Prilosec 20 mg] 20 mg PO DAILY 03/19/16 Pravastatin Sodium [Pravachol] 80 mg PO DAILY@18 03/19/16 Tamsulosin HCl [Flomax 0.4 MG (*)] 0.4 mg PO HS 03/19/16 Ascorbic Acid [Vitamin C 500 mg 1,000 mg PO DAILY@1900 06/10/17 (*)] Cholecalciferol Vit D3 [Vitamin D3 1,000 units PO TUFR@0 06/10/17 (*)] Herbals/Supplements -Info Only 1 ea PO DAILY 06/10/17 Multivitamins [Multivitamin (*)] 1 each PO DAILY 06/10/17 [place]-3 Fatty Acids [Fish Oil 1000 1,000 mg PO BID 06/10/17 mg (*)] Tears/Dextran 70/Hypromellose 1 drop EACHEYE Q2 PRN 06/10/17 [Natural Balance Tears (*)] Triamcinolone 0.025% 1 tran TP DAILY PRN 06/10/17 [Triamcinolone 0.025% Ointment (*)] Ubidecarenone [Co Q-10] 300 mg PO DAILY 06/10/17 Aspirin [Aspirin 325 mg (*)] 325 mg PO DAILY #30 tab 06/11/17 amLODIPine BESYLATE [Norvasc 2.5 2.5 mg PO DAILY #30 tab 06/11/17 mg (*)] Albuterol [Proventil Inhaler] 1 - 2 puffs IH Q4H #1 mdi 01/05/18 Azithromycin [Zithromax] 250 mg PO DAILY #6 tab 01/05/18 predniSONE 60 mg PO DAILY 5 Days tab 01/05/18 Departure - Departure Disposition: Home, Routine, Self-Care Clinical Impression: Pneumonia Qualifiers: Pneumonia type: due to unspecified organism Laterality: right Lung location: lower lobe of lung Qualified Code(s): J18.1 - Lobar pneumonia, unspecified organism Condition: Good Instructions: Albuterol (By breathing), Prednisone (By mouth), Azithromycin ( By mouth), Pneumonia (ED) Additional Instructions: 1. Take azithromycin (antibiotic) as prescribed for pneumonia. Be sure to complete the entire prescription even if you feel better. 2. Use albuterol as directed for shortness of breath and coughing. 3. Take prednisone as prescribed. 4. Follow up with your primary care provider within one week without fail for reevaluation. 5. Return to the ED for any worsening of condition. Referrals: Danelle Camarillo MD [Primary Care Provider] - As per Instructions Prescriptions: Albuterol [Proventil Inhaler] 1 - 2 puffs IH Q4H #1 mdi Azithromycin [Zithromax] 250 mg PO DAILY #6 tab predniSONE 60 mg PO DAILY 5 Days tab Report Scribed for: Gurjit Liang Report Scribed by: Sussy Perez Date of Report: 01/05/18 Time of Report: 14:08 Physician Review and Approval Statement: Portions of this note were transcribed by an ED scribe. I personally performed the history, physical exam, and medical decision making; and confirm the accuracy of the information in the transcribed note.
--- NOTE | 2018-01-05 14:23 | CPEKG ---
Heart Rate: 72 RR Interval: 833 P-R Interval: 212 QRSD Interval: 86 QT Interval: 388 QTC Interval: 425 P [place]: 46 QRS [place]: 65 T Wave [place]: 73 EKG Severity - BORDERLINE ECG - EKG Impression: SINUS RHYTHM EKG Impression: BORDERLINE REPOL ABNORMALITY, LATERAL LEADS Electronically Signed By: Ulises Diaz 08-Jan-2018 20:35:16
[2018-01-05 14:39] LABS: PLATELET COUNT 203 10^3/uL (150-400)
[2018-01-05 16:30] VITALS: BP 124/63
== END 2018-01-05 16:29 | disposition home or self-care (01) ==
DX: J18.9 Pneumonia, unspecified organism (principal); J44.9 Chronic obstructive pulmonary disease, unspecified; I10 Essential (primary) hypertension; I25.10 Atherosclerotic heart disease of native coronary artery without angina pectoris; Z79.82 Long term (current) use of aspirin
CPT/HCPCS: 84484-PO

== ENCOUNTER → 2018-03-13 | Outpatient (CLI) | payer OTHER | LOC: FIMAGING 17:27 | PROVIDERS: ATTEND Internal Medicine Rheumatology | DX: M25.551 Pain in right hip (principal); M25.552 Pain in left hip; M25.512 Pain in left shoulder; M25.511 Pain in right shoulder ==

== ENCOUNTER 2018-03-22 12:13 | Observation (INO) | payer OTHER ==
--- NOTE | 2018-03-22 12:22 | EDPHY ---
H & P Time Seen by Provider: 03/22/18 12:16 HPI/ROS: CHIEF COMPLAINT: Left facial weakness, arm weakness HISTORY OF PRESENT ILLNESS: The patient has a history of hypertension, coronary artery disease and prior small ischemic stroke in May 2017. He presents to the ED after he developed acute left arm weakness, left facial weakness and blurry vision approximately 40 min prior to arrival. The patient reported he initially had no motor movement of his left upper extremity however those symptoms are improving. The patient denies any history of fall or trauma. The patient believes he is currently taking Plavix. He does not think he is on an anticoagulant. He has no history of atrial fibrillation. The patient does have a history of chronic renal failure with creatinine is in the 2s. When the patient was hospitalized in May of 2017 he did undergo a unremarkable MR angiogram of the head he did have a right motor strip infarct noted on MRI. REVIEW OF SYSTEMS: A comprehensive 10 point review of systems is otherwise negative aside from elements mentioned in the history of present illness. Source: Patient Exam Limitations: No limitations - Medical/Surgical History Hx Asthma: Yes Hx Chronic Respiratory Disease: No Hx Diabetes: No Hx Cardiac Disease: Yes Hx Renal Disease: Yes Hx Cirrhosis: No Hx Alcoholism: No Hx HIV/AIDS: No Hx Splenectomy or Spleen Trauma: No Other PMH: CARDIAC STENTS/HTN BPH/KIDNEY PROBLEMS. aaa, asthma, copd, ddd, zeb, cri - Social History Smoking Status: Former smoker - Physical Exam Exam: General Appearance: Alert, no distress Eyes: Pupils equal and round no pallor or injection ENT, Mouth: Mucous membranes moist Respiratory: There are no retractions, lungs are clear to auscultation Cardiovascular: Regular rate and rhythm Gastrointestinal: Abdomen is soft and nontender, no masses, bowel sounds normal Neurological: 5/5 strength all 4 extremities, slight left facial droop, slight pronator drift appreciated in left upper extremity Skin: Warm and dry, no rashes Musculoskeletal: Neck is supple nontender Extremities: symmetrical, full range of motion Psychiatric: Patient is oriented X 3, there is no agitation Constitutional: Initial Vital Signs Temperature (C) 36.5 C 03/22/18 12:18 Heart Rate 73 03/22/18 12:18 Respiratory Rate 16 03/22/18 12:18 Blood Pressure 189/92 H 03/22/18 12:18 O2 Sat (%) 93 03/22/18 12:18 O2 Delivery Mode Room Air Allergies/Adverse Reactions: hydromorphone HCl [From Dilaudid] Allergy (Intermediate, Verified 01/05/18 13:15 ) MENTAL CHANGES opioid agonists Allergy (Uncoded 06/06/16 11:44) Home Medications: Medication Instructions Recorded Allopurinol [Allopurinol 100 MG 100 mg PO BID 03/19/16 (*)] Clopidogrel Bisulfate [Clopidogrel] 75 mg PO DAILY 03/19/16 Omeprazole [Prilosec 20 mg] 20 mg PO DAILY 03/19/16 Pravastatin Sodium [Pravachol] 80 mg PO DAILY@18 03/19/16 Tamsulosin HCl [Flomax 0.4 MG (*)] 0.4 mg PO HS 03/19/16 Ascorbic Acid [Vitamin C 500 mg 1,000 mg PO DAILY@189906/10/17 (*)] Cholecalciferol Vit D3 [Vitamin D3 1,000 units PO TUFR@189906/10/17 (*)] Multivitamins [Multivitamin (*)] 1 each PO DAILY 06/10/17 [place]-3 Fatty Acids [Fish Oil 1000 1,000 mg PO BID 06/10/17 mg (*)] Tears/Dextran 70/Hypromellose 1 drop EACHEYE Q2 PRN 06/10/17 [Natural Balance Tears (*)] Ubidecarenone [Co Q-10] 300 mg PO DAILY 06/10/17 Aspirin [Aspirin 325 mg (*)] 325 mg PO DAILY #30 tab 06/11/17 Albuterol [Proventil Inhaler] 1 - 2 puffs IH Q4H #1 mdi 01/05/18 predniSONE 60 mg PO DAILY 5 Days tab 01/05/18 Medical Decision Making - Diagnostics Imaging Results: Imaging Impressions Head CT 03/22/18 12:19 Impression: Stable since May 2017. Nothing acute identified. Results called to Dr. Amador Thompson while the patient was on the CT table. Final results are concordant with the initial interpretation at 1:05 PM General information for patients regarding this examination can be found at [email or web address]. If you have questions or comments about this report, please contact me at (hospital) or [phone] (cell). ED Course/Re-evaluation: The patient presents to the ED with rapidly improving neurologic symptoms initially characterized as a fairly profound facial droop and dense paralysis involving the left upper extremity. The patient arrived to the emergency department and is noted to have a very small facial droop and pronator drift. NIH stroke scale was 2. I attempted to get consultation from [facility] however their tele communication system is not working. Patient was re-evaluated again at 1:00 p.m.. At this point time he has only a questionable small weakness noted at the corner of his mouth. Pronator drift is been resolved. We discussed the risks and benefits of tPA. In light of his rapidly improving and nearly resolved symptoms tPA is not recommended at this point time. I did curbside with Dr. Banerjee from Neurology who also concurs with this recommendation. The patient will undergo a stat MRI of the head, neck and brain. Patient will be admitted to the hospitalist service under the care of Dr. Chu. 3:20 p.m.: Patient's MRI demonstrates no evidence of an acute stroke. MR angiogram of the head and neck are pending. Differential Diagnosis: Differential diagnosis considered includes stroke, TIA, intracranial hemorrhage , carotid dissection, vascular stenosis - Data Points Laboratory Results: Laboratory Results 03/22/18 12:20 03/22/18 03/22/18 03/22/18 12:20 12:20 12:20 WBC 7.34 10^3/uL 10^3/uL (3.80-9.50) RBC 2.97 10^6/uL L 10^6/uL (4.40-6.38) Hgb 9.7 g/dL L g/dL (13.7-17.5) POC Hgb 9.5 gm/dL L gm/dL (13.7-17.5) Hct 28.4 % L % (40.0-51.0) POC Hct 28 % L % (40-51) MCV 95.6 fL fL (81.5-99.8) MCH 32.7 pg pg (27.9-34.1) MCHC 34.2 g/dL g/dL (32.4-36.7) RDW 14.7 % % (11.5-15.2) Plt Count 193 10^3/uL 10^3/uL (150-400) MPV 9.3 fL fL (8.7-11.7) Neut % (Auto) 71.8 % % (39.3-74.2) Lymph % (Auto) 13.9 % L % (15.0-45.0) [place] % (Auto) 7.9 % % (4.5-13.0) Eos % (Auto) 5.7 % % (0.6-7.6) Baso % (Auto) 0.4 % % (0.3-1.7) Nucleat RBC Rel Count 0.0 % % (0.0-0.2) Absolute Neuts (auto) 5.27 10^3/uL 10^3/uL (1.70-6.50) Absolute Lymphs (auto) 1.02 10^3/uL 10^3/uL (1.00-3.00) Absolute Monos (auto) 0.58 10^3/uL 10^3/uL (0.30-0.80) Absolute Eos (auto) 0.42 10^3/uL H 10^3/uL (0.03-0.40) Absolute Basos (auto) 0.03 10^3/uL 10^3/uL (0.02-0.10) Absolute Nucleated RBC 0.00 10^3/uL 10^3/uL (0-0.01) Immature Gran % 0.3 % % (0.0-1.1) Immature Gran # 0.02 10^3/uL 10^3/uL (0.00-0.10) PT 13.5 SEC SEC (12.0-15.0) INR 1.01 (0.83-1.16) POC Sodium 142 mEq/L mEq/L (135-145) POC Potassium 4.6 mEq/L mEq/L (3.3-5.0) POC Chloride 108 mEq/L mEq/L (97-110) POC BUN 42 mg/dL H mg/dL (7-23) POC Creatinine 2.9 mg/dL H mg/dL (0.7-1.3) POC Glucose 81 mg/dL mg/dL (70-100) Point of Care Test Results: Chemistry 03/22/18 12:20 POC Sodium 142 mEq/L mEq/L (135-145) POC Potassium 4.6 mEq/L mEq/L (3.3-5.0) POC Chloride 108 mEq/L mEq/L (97-110) POC BUN 42 mg/dL H mg/dL (7-23) POC Creatinine 2.9 mg/dL H mg/dL (0.7-1.3) POC Glucose 81 mg/dL mg/dL (70-100) ISTAT H&H 03/22/18 12:20 POC Hgb 9.5 gm/dL L gm/dL (13.7-17.5) POC Hct 28 % L % (40-51) Departure - Departure Disposition: [facility] Inpatient Acute Clinical Impression: TIA (transient ischemic attack), Left hand weakness Condition: Good
[2018-03-22 12:37] LABS: PLATELET COUNT 193 10^3/uL (150-400)
[2018-03-22 12:59] LABS: INR 1.01 (0.83-1.16)
[2018-03-22 13:08] LABS: PROTIME(PATIENT) 13.5 SEC (12.0-15.0)
--- NOTE | 2018-03-22 15:01 | CPEKG ---
Test Reason : OPEN Blood Pressure : / mmHG Vent. Rate : 061 BPM Atrial Rate : 060 BPM P-R Int : 231 ms QRS Dur : 091 ms QT Int : 420 ms P-R-T Axes : 049 080 065 degrees QTc Int : 423 ms Sinus rhythm Atrial premature complex 1 degree AV block Confirmed by Matthew Thompson ([id number]) on 03/22/2018 3:00:45 PM Referred By: Confirmed By:Matthew Thompson
--- NOTE | 2018-03-22 15:09 | ASMTLACE ---
BERTAE Acuity / Level of Answers: Yes Care: Did the patient have an inpatient admission? Comorbidities - select Answers: Cerebrovascular disease all that apply (CVA, TIA, aneurysms, vasc ular dementia) Chronic pulmonary disease Coronary Artery Disease Mild liver or renal disease Other Notes: HTN, BPH # of Emergency department Answers: 1-2 visits in the last 6 months Score: 12 Date Signed: 03/22/2018 03:08 PM Electronically Signed By:Gabrielel Preciado RN
--- NOTE | 2018-03-22 15:12 | ASMTCMCOM ---
CM Note CM Note Notes: Pt presented to the Emergency Department via EMS with left sided weakness. Medical history is extensive and includes a prior TIA, CAD, HTN, COPD, SHARDA, BPH, mild renal disease. Pt lives with his , independently. Pt to be admitted for further evaluation and treatment of a TIA. Discharge needs remain unclear at this time. CM will continue to follow. Date Signed: 03/22/2018 03:11 PM Electronically Signed By:Gabrielle Preciado RN
[2018-03-22] MEDS ORDERED: ACETAMINOPHEN 325 MG TAB PO PRN (17:30)
[2018-03-22] MEDS ORDERED: ONDANSETRON 4 MG/2 ML VIAL IVP PRN (17:30)
[2018-03-22] MEDS ORDERED: PRAVASTATIN SODIUM 40 MG TAB PO SCH (18:00)
--- NOTE | 2018-03-22 18:28 | GHP ---
[f rep st] HISTORY AND PHYSICAL DATE OF ADMISSION: 03/22/2018 CHIEF COMPLAINT: Transient left upper extremity weakness. HISTORY: Deepak is a 78-year-old male who had a stroke in May 2017, he had a LINQ monitor place d but it has failed to show atrial fibrillation. He is already on aspirin and Plavix. He now repres ents to the hospital with new onset of left upper extremity numbness and weakness starting at 10:30 a .m. this morning. He also had some associated left-sided facial paralysis and some transient slurred speech. He was not a candidate for tPA as symptoms were rapidly resolving in the emergency room. Oma muhammad has had some stuttering of symptoms with things coming and going. At this point, he is mostly reso lved except for some residual left facial droop. His left upper extremity strength is normal. His n umbness has resolved. He never had any lower extremity symptoms. PAST MEDICAL HISTORY: 1. Chronic kidney disease. Baseline creatinine 2.9. 2. Stroke, May 2017. 3. Hypertension. 4. COPD. 5. Obstructive sleep apnea. Oxygen and CPAP noncompliant. 6. BPH. 7. Coronary artery disease, status post LAD stent. 8. 8 cm abdominal aortic aneurysm status post graft repair. 9. LINQ monitor in place. 10. Mild vascular dementia. MEDICATIONS: Please see computer record for full detailed list. ALLERGIES: Hydromorphone. SOCIAL HISTORY: Quit smoking in 2004. Was a heavy smoker prior to that, since age 16. He was also a heavy alcoholic. He went to alcohol rehab and has now been sober for 6 months. Just prior to quit ting, his alcohol use had ramped up to 16 ounces a day of straight vodka. He lives with his . 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 REVIEW OF SYSTEMS: Complete review of systems obtained. Review of systems negative for constitution al, HEENT, GI, pulmonary, vascular, , hematologic, endocrine, psych except for positives as in HPI. FAMILY HISTORY: Reviewed, noncontributory to presenting complaint. PHYSICAL EXAMINATION: GENERAL: Well-developed, well-nourished male, in no acute distress. VITAL SI GNS: Temperature is 36.5, pulse 58, blood pressure 182/87, saturating 94% on room air. HEENT: Norm al conjunctivae. Pupils equal and react to light. ENT normal ears, nose. Hearing intact. Normal t eeth. Oropharynx moist. NECK: Trachea midline. No thyromegaly. CHEST: Normal respiratory effort , lungs clear to auscultation bilaterally. CARDIOVASCULAR: Regular rhythm. No murmur. No extremit y edema. ABDOMEN: Soft, nontender. No hepatosplenomegaly. SKIN: Warm, dry, intact. No rash. MU SCULOSKELETAL: No cyanosis or clubbing. Strength 5/5 upper and lower extremities. NEURO: Cranial nerves intact except for some residual left-sided facial droop. Normal sensation to light touch. PS YCHIATRIC: Alert and oriented x3. Normal affect. Normal judgment. Normal memory. LABORATORY DATA: White count 7.34, hematocrit 28.4, platelets 193. Sodium 142, potassium 4.6, chlor tommy 103, bicarb 42, BUN 20, creatinine is 2.9, glucose 81, INR is 1.01. Head CT is negative. EKG vi ewed by me. My personal interpretation is normal sinus rhythm. No ST or T-wave changes. Head CT is negative. MRI of the brain is negative. MRA of the head and neck shows mild stenosis and a carotid ultrasound recommended. ASSESSMENT/PLAN: 1. Transient ischemic attack versus a very small stroke under the detection level of MRI as he does have some residual left-sided facial droop at this time. He is already on aspirin and Plavix. LINQ monitor already in place. Per has never shown atrial fibrillation. We will check a lipid panel in the morning. If his LDL is not less than 70, we could consider switching him to Crestor. He has been intolerant of Lipitor in the past due to myalgias. He will also need optimal blood pressure co ntrol. For now, we will allow permissive hypertension, but once his acute event is complete. He say s his systolic blood pressures typically run in the high 140s so there is some opportunity there for improvement. We will check an echocardiogram and a carotid ultrasound to compare to his MRA per Radi ology recommendations. Neurology will see him in the morning. 2. Chronic kidney disease. He has been at his baseline creatinine of 2.9. Per the patient, the alana ology of his chronic renal failure is a renal infarct as a complication of his abdominal aortic aneur ysm graft repair. 3. Obstructive sleep apnea. He is supposed to wear oxygen at night but has recently become noncompl iant with this. He has refused to repeat a sleep study. 4. Coronary artery disease, status post previous stent to the LAD. This is distant. 5. Abdominal aortic aneurysm, status post previous graft repair. 6. Mild vascular dementia. 7. History of heavy alcohol use. He quit 6 months ago. I will check hepatic function in the [facility] per patient request. CODE STATUS: Full. ADMISSION STATUS: 1. Will admit to observation. Reevaluate tomorrow regarding ongoing need for hospitalization. 2. DVT prophylaxis: He is high risk. Will place him on subcu Lovenox. /[id number]/MODL
[2018-03-22] MEDS ORDERED: TAMSULOSIN HCL 0.4 MG CAP PO SCH (21:00)
[2018-03-22] MEDS ORDERED: TERAZOSIN HCL 1 MG CAP PO SCH (21:00)
[2018-03-22] MEDS: ALLOPURINOL 100 MG TAB PO SCH (21:08)
[2018-03-22] MEDS ORDERED: CALCIUM CARBONATE 500 MG CHEWABLE TAB PO PRN (21:20)
[2018-03-23] MEDS: ALLOPURINOL 100 MG TAB PO SCH (08:41)
[2018-03-23] MEDS ORDERED: CLOPIDOGREL BISULFATE 75 MG TAB PO SCH (09:00)
[2018-03-23] MEDS ORDERED: ENOXAPARIN 40 MG/0.4 ML SYR SC SCH (09:00)
[2018-03-23] MEDS ORDERED: ASPIRIN 325 MG TAB PO SCH (09:00)
[2018-03-23] MEDS ORDERED: PANTOPRAZOLE SODIUM 40 MG TAB PO SCH (09:00)
[2018-03-23 12:12] VITALS: BP 117/83
--- NOTE | 2018-03-23 12:25 | ECHO ---
[email or web address] [address] Main: [phone] Fax: Transthoracic Echocardiogram Name: NANNETTE MARINO MR#: [id number] Study Date: 03/23/2018 Study Time: 09:58 AM Date of : 1940 Age: 78 year(s) Height: 172.7 cm (68 in.) Weight: 75.3 kg (166 lb.) BSA: 1.89 m2 Gender: Male Examination: Echo Indication: stroke Image Quality: Adequate Contrast: Requested by: Araceli Chu BP: 154 mmHg/69 mmHg Heart Rate: Rhythm: Indication: stroke Procedure Staff Prize Coordinator: Emily Garcia RDCS Reading Physician: Pedro Luis Tomas MD Requesting Provider: Conclusions: Normal size left ventricle. The ejection fraction is estimated to be 50-55 %. No regional wall motion abnormality. The left atrium is severely dilated. Mild mitral valve regurgitation is present. Mild aortic valve regurgitation is present. Mild tricuspid regurgitation is present. Right ventricular systolic pressure measures 20mmHg. Compared to 06/10/2017, lefta atrial size has increased, mitral regurgitation is slightly worse, and aortic regurgitation is now present. Measurements: Chambers Valvular Assessment AV/MV Valvular Assessment TV/PV Normal Normal Normal Name Value Range Name Value Range Name Value Range Ao Cynthia (2D): 2.9 cm (1.4 cm-2.6 AV Vmax: 1.90 m/s (1 m/s-1.7 TR Vmax: 1.93 mm/s ( - ) cm) m/s) TR PGmax: 15 mmHg ( - ) IVSd (2D): 1.0 cm (0.6 cm-1.1 AV maxP mmHg ( - ) syst. PAP: 20 mmHg ( - ) cm) AV meanP mmHg ( - ) PV Vmax: 1.00 m/s (0.6 m/s-0.9 LVDd (2D): 5.0 cm (4.2 cm-5.9 LATOSHA (VTI): 1.3 cm ( - ) m/s) cm) MV E Vmax: 0.69 m/s ( - ) PV PGmax: 4 mmHg ( - ) LVDs (2D): 3.5 cm (2.1 cm-4 MV A Vmax: 0.97 m/s ( - ) cm) MV E/A: 0.71 ( - ) LVPWd (2D): 0.9 cm (0.6 cm-1 cm) MV PHT: 0.143 s ( - ) LVOTd 1.9 cm 1.9 cm mm MVA (PHT): 1.5 s ( - ) LVEF (BP): 50 % (>=55 %) EF Range: 50-55 % RVDd(2D): 4.2 cm (1.9 cm-3.8 cmmm) Patient: NANNETTE MARINO Study Date: 03/23/2018 Page 1 of 2 09:58 AM Continued Measurements: Chambers Valvular Assessment AV/MV Valvular Assessment TV/PV Name Value Name Value Name Value LADs: 4.5 cm MV DecTime: 454 m/s CVP (est.): 5 mmHg LADs Lon.8 cm MV E' Septal: 0.05 m/s LA Area: 24.3 cm2 MV E/E' Septal: 14.80 LA Volume: 105 ml MV E/E' Lateral: 12.00 LA Volume Index: 55.6 ml/m2 RA Area: 21.3 cm2 Additional Vessels Name Value Ao Ascendin.3 cm Inferior Vena Cava: 1.9 cm Findings: Left Ventricle: Normal size left ventricle. No LV hypertrophy. Low normal left ventricular systolic function. The ejection fraction is estimated to be 50-55 %. No regional wall motion abnormality. Unable to assess diastolic dysfunction. There is possible mild septal hypokinesis. Right Ventricle: Normal size right ventricle. Normal RV function. Left Atrium: The left atrium is severely dilated. Right Atrium: The right atrium is normal in size. Mitral Valve: The mitral valve is normal in appearance and function. Mild mitral valve regurgitation is present. No mitral stenosis is present. Aortic Valve: The aortic valve is tri-leaflet. Aortic sclerosis is present. Mild aortic valve regurgitation is present. No aortic valve stenosis is present. Tricuspid Valve: The tricuspid valve is normal in appearance and function. Mild tricuspid regurgitation is present. The pulmonary artery pressure is normal. Right ventricular systolic pressure measures 20mmHg. Pulmonic Valve: The pulmonic valve is normal in appearance and function. There is no pulmonic regurgitation seen. Aorta: The aorta is normal. Normal size aortic root measuring 2.9 cm. Normal size ascending aorta measuring 2.3 cm. IVC: The IVC is normal sized. Pericardium: No pericardial effusion. No pleural effusion. (No Signature Object) Patient: NANNETTE MARINO Study Date: 03/23/2018 Page 2 of 2 09:58 AM [id number]
--- NOTE | 2018-03-23 12:57 | NEUROPROG ---
Assessment: HOSPITAL NEUROLOGY CONSULT REQUESTING: Araceli Chu MD REASON: weakness HPI: 78 year old with a history of HTN, HLD, CAD, CKD, alcoholism in remission, cognitive impairment, ischemic stroke in 2016 in the right motor strip who presented to the ED yesterday with left face/arm weakness. Patient has cognitive challenges (likely related to chronic alcoholism), so mot of the history is obtained from his and the record. He went out to mow the lawn yesterday morning, and was last seen well around 11:00am. states she went to check on him, because the mower wasn't started and at 11:30am saw his left lower face was not moving at all and his left arm was flaccid. They recognized the situation as a possible stroke so he was taken to the ED. On arrival, patient's symptoms were improving, but he was still symptomatic. His SBPs were noted to be elevated in 180s-190s. Given resolving symptoms tPA was not pursued. He had an MRI brain wo while symptomatic which showed nothing acute, just known chronic infarct in the right precentral gyrus, as well as chronic microvascular ischemic changes in the white matter. His BP gradually lowered and symptoms seemed to improve with this. ROS: As per the HPI, otherwise a complete 12 point ROS was performed and is negative ALLERGIES AND MEDS: As recorded in the EMR - reviewed and reconciled PFSH: As per the intake H&P by Dr. Chu from yesterday EXAM: VS reviewed in EMR GEN: WDWN laying in NAD HEENT: NCAT, sclera anicteric, conjunctiva not injected, MMM, oropharynx clear, no scalp tenderness NECK: supple, nontender, no meningismus CV: RRR s1 s2 wo m/r/c/g. Carotid pulses 2+ wo bruit NEURO: MS: awake, alert, oriented to all spheres. Speech nondysarthric. No language disturbance. Follows commands. Attends to both sides. Episodic/recent memory impaired on casual conversation. Mood euthymic. Good fund of knowledge. CN: pupils 3mm round and reactive. Unable to visualize fundi. VFF. Primary gaze centered. Full ocular motility. Facial sensation preserved. Face with left nasolabial fold flattening and lagging activation, but symmetric on full activation. Hearing grossly intact to finger rub. Palatoglossal movements intact. Shoulder shrug and head turn strong. MOTOR: normal bulk/tone. No adventitial movements. Full power throughout. SENSORY: intact/symmetric LT/PP in the extremities No extinction. COORD: no ataxia FN/HS. Santi preserved. REFLEX: plantars down. No clonus. DTRS 2/4. GAIT: deferred to PT safety eval DATA REVIEW: Labs reviewed in EMR LDL 63 TTE - EF 50-55%, severely dilated LA, no mass Carotid doppler - 50% stenosis BICAs by velocities PERSONALLY INTERPRETED RESULTS AND DATA: MRI brain wo - as per the HPI MRA head/neck - 20% stenosis LICA, otherwise patent vessels IMPRESSION AND RECOMMENDATIONS: // SUSPECT HTN EMERGENCY WITH RECRUDESCENCE OF OLD STROKE DEFICITS Patient with left face/arm weakness which seemed to improve with lowering of BP. Had MRI brain wo while symptomatic which showed no acute infarct. Likely recrudescence of right motor strip infarct symptoms from HTN. Recommend ongoing vascular risk factor optimization measures with dual antiplatelet, statin, goal normotension, goal normoglycemia. Still following with cardiology for possible cardioembolic source of his prior stroke (has LINQ) . Stroke education provided. OK for discharge. FU PCP and cardiology for ongoing vascular risk factor monitoring/optimization with attention to his BP. Sign off. Recall PRN. Objective: Vital Signs Temp Pulse Resp BP Pulse Ox 36.6 C 70 15 117/83 H 96 03/23/18 12:00 03/23/18 12:00 03/23/18 12:00 03/23/18 12:00 03/23/18 12:00 Laboratory Results 03/23/18 04:15 03/22/18 03/23/18 03/24/18 05:59 05:59 05:59 Intake Total 800 Output Total 400 Balance 400 PT 13.5 SEC (12.0-15.0) 03/22/18 12:20 INR 1.01 (0.83-1.16) 03/22/18 12:20 Allergies/Adverse Reactions: hydromorphone HCl [From Dilaudid] Allergy (Intermediate, Verified 01/05/18 13:15 ) MENTAL CHANGES opioid agonists Allergy (Uncoded 06/06/16 11:44)
--- NOTE | 2018-03-23 14:38 | ASDISCHSUM ---
Discharge Information Plan Status:Home with No Needs Medically Cleared to Leave:03/23/2018 Discharge Date:03/23/2018 CM D/C Disposition:Home, Routine, Self-Care ADT D/C Disposition:Home, Routine, Self-Care Projected Discharge Date:03/23/2018 Transportation at D/C:Family Discharge Delay Reason: Follow-Up Date:03/23/2018 Discharge Slot:2 - 12:01 pm - 18:00 pm Final Diagnosis:TIA, left sided weakness, left sided facial droop Placement Information Patient Contact Information Contact Name:SCALES (MOLLY) Relationship: Address:[address] Work Phone: [facility]:[place] Alternate Phone: [facility]/Zip Code:[place] [address] Email: Financial Information Financial Class:Medicare Advantage Plans Primary Plan Desc:[facility] [employer] Primary Plan Number:[id number] Secondary Plan Desc: Secondary Plan Number: Assessment Information LACE LACE Acuity / Level of Answers: Yes Care: Did the patient have an inpatient admission? Comorbidities - select Answers: Cerebrovascular disease all that apply (CVA, TIA, aneurysms, vasc ular dementia) Chronic pulmonary disease Coronary Artery Disease Mild liver or renal disease Other Notes: HTN, BPH # of Emergency department Answers: 1-2 visits in the last 6 months Score: 12 Date Signed: 03/22/2018 03:08 PM Electronically Signed By:Gabrielle Preciado RN [facility] CM Progress Note CM Note CM Note Notes: Pt presented to the Emergency Department via EMS with left sided weakness. Medical history is extensive and includes a prior TIA, CAD, HTN, COPD, SHARDA, BPH, mild renal disease. Pt lives with his , independently. Pt to be admitted for further evaluation and treatment of a TIA. Discharge needs remain unclear at this time. CM will continue to follow. Date Signed: 03/22/2018 03:11 PM Electronically Signed By:Gabrielle Preciado RN Case Management Discharge Plan Note Case Management Discharge Discharge Order Complete? Answers: Yes Patient to Obtain Answers: via Family Medications Transportation Arranged Answers: Family/Friends Transport will Pick (Date 03/23/2018 02:00 PM & Time) EMTALA Complete Answers: No Notes: N/A Case Management Transport Answers: No Notes: N/A Form Complete Faxed Final Orders Answers: No Notes: N/A Agency/Facility Transfer Answers: No Notes: N/A Report Printed & Faxed to Receiving Agency Family Notified Answers: Yes Notes: at bedside Discharge Comments Notes: Reviewed chart, spoke with Dr. Chu and MARIANO Onofre regarding discharge plan of care, pt's progress. Pt to discharge home today. No PT/OT orders. Met with pt and to discuss needs. Per , pt is fine for discharge, no needs identified. LEE form signed, copy placed in chart. Pt to follow up as directed. CM available for any further issues or concerns. Discharge Plan: Home independently with family support Date Signed: 03/23/2018 02:37 PM Electronically Signed By:Gabrielle Preciado RN Intervention Information Intervention Type:*LEE-Signed Date of Service:03/23/2018 02:33 PM Patient Type:Observation Staff Member:MARIANO Preciado Taylor Hours: Discipline: Severity: Comment:
--- NOTE | 2018-03-23 17:07 | GDS ---
[f rep st] DISCHARGE SUMMARY DISCHARGE DIAGNOSES: 1. Hypertensive emergency with recrudescence of previous stroke deficit. 2. Chronic kidney disease. Baseline creatinine 2.9. 3. Obstructive sleep apnea with oxygen noncompliance. 4. Coronary artery disease, status post previous stent to left anterior descending. 5. Abdominal aortic aneurysm, status post previous graft repair. 6. Mild vascular dementia. 7. Previous history of alcohol use, now alcohol-free for 6 months. HISTORY: Deepak is a 78-year-old male who had a stroke in May 2017. He has a Linq monitor in [facility] but this failed to show atrial fibrillation. He is already on aspirin and Plavix. He re-presen zacarias to the hospital with new onset of left upper extremity numbness and weakness as well as some left -sided facial paralysis and some transient slurred speech. He was not a candidate for tPA as symptom s were rapidly resolving in the emergency room. He had an MRI of the brain while symptomatic and it was negative. He was seen in consultation with Dr. Nieves of Neurology. Dr. Nieves felt there was no evidence of acute stroke given the negative MRI during a symptomatic period. He feels this is re crudescence of the previous stroke symptoms from his previous stroke exacerbated by a hypertensive em ergency. Blood pressure on presentation was very elevated 189/92. The patient has not been monitoring his blood pressure very closely at home. They have had difficult y finding a good blood pressure medication for him due to multiple intolerances. He cannot take diur etics or SUJATHA inhibitors due to his chronic kidney disease. He is currently on 1 mg of terazosin at [facility]. However, this has caused bilateral breast enlargement which is very distressing to him. He rdz s previously tried amlodipine, but it caused lower extremity rash. He also follows very closely with Dr. Sharp, in addition to his primary care doctor, Dr. Camarillo. We decided to increase his terazos in to 2 mg p.o. at bedtime in the short term and he will resume home blood pressure monitoring and se sabina Camarillo in short order to discuss a more long-term strategy for blood pressure control. I do susp ect the breast tenderness and enlargement may be due to this medication. Alternative medications saba t could be considered include clonidine, hydralazine, or Imdur. The patient would like to work with his primary care provider and Dr. Sharp regarding long-term blood pressure management. DISCHARGE MEDICATIONS: Please see computerized record for full detailed list. New medications: Ter azosin increased from 1 mg to 2 mg p.o. at bedtime. ADDITIONAL DISCHARGE INSTRUCTIONS: 1. Check blood pressure on home cuff twice daily and record results to bring to Dr. Camarillo within 1 we ek. 2. Discussed with Dr. Camarillo alternative options for blood pressure medications given concern regardin g breast enlargement and tenderness on terazosin. Clonidine, hydralazine, or Imdur could be consider ed. Greater than 30 minutes' time was spent on arranging this discharge. Patient was seen and examined b y me on day of discharge. /[id number]/MODL
[2018-03-24] MEDS ORDERED: ENOXAPARIN 30 MG/0.3 ML SYR SC SCH (09:00)
== END 2018-03-23 14:50 | disposition home or self-care (01) ==
LOC: INTOOBSV 13:44 → F3N 16:00
PROVIDERS: ADMIT Internal Medicine; ATTEND Internal Medicine
DX: I16.1 Hypertensive emergency (principal); N18.9 Chronic kidney disease, unspecified; G47.33 Obstructive sleep apnea (adult) (pediatric); Z91.14 Patient's other noncompliance with medication regimen; I25.10 Atherosclerotic heart disease of native coronary artery without angina pectoris; I71.4 Abdominal aortic aneurysm, without rupture; F01.50 Vascular dementia, unspecified severity, without behavioral disturbance, psychotic disturbance, mood disturbance, and anxiety; I69.392 Facial weakness following cerebral infarction; Z87.891 Personal history of nicotine dependence
CPT/HCPCS: 70450; 70544; 70547; 70551; 92523; 92610; 93005; 93306; 93880; 96372; 99285; G0378; G8996; G8997; G8998; G8999; G9186; J1650; 82435-PO; 82565-PO; 82947-PO; 84132-PO; 84295-PO; 84520-PO; 85014-PO

== ENCOUNTER → 2018-07-03 | Outpatient (CLI) | payer OTHER | LOC: FIMAGING 10:11 | PROVIDERS: ATTEND Internal Medicine | DX: K80.20 Calculus of gallbladder without cholecystitis without obstruction (principal); I77.811 Abdominal aortic ectasia; N28.1 Cyst of kidney, acquired ==

== ENCOUNTER → 2019-01-09 | Outpatient (CLI) | payer OTHER | LOC: FIMAGING 08:53 ==